=== PATIENT | female | born 1985 | race African-American/Black ===

== ENCOUNTER 2018-03-18 15:46 | Emergency (ER) | payer OTHER ==
[~2018-03-18] VITALS: Ht 162.6 cm; Wt 93.0 kg
[2018-03-18 16:07] VITALS: BP 151/106
[2018-03-18] MEDS ORDERED: IBUPROFEN 600600 M1 PO (16:15)
[2018-03-18] MEDS ORDERED: TIZANIDINE HCL4 MG PO (16:15)
== END 2018-03-18 16:42 | disposition home or self-care (01) ==
LOC: ER 15:46
DX: S39.012A Strain of muscle, fascia and tendon of lower back, initial encounter (principal); M25.562 Pain in left knee; M25.511 Pain in right shoulder; F17.210 Nicotine dependence, cigarettes, uncomplicated; V89.2XXA Person injured in unspecified motor-vehicle accident, traffic, initial encounter; Y93.89 Activity, other specified; Y92.89 Other specified places as the place of occurrence of the external cause; Y99.8 Other external cause status